=== PATIENT | female | born 1985 | race Hispanic/Latino ===

== ENCOUNTER 2018-08-01 15:29 | Emergency (ER) | payer SELFPAY ==
[2018-08-01 15:52] LABS: APPEARANCE,URINE Clear (CLEAR); BILIRUBIN,URINE Negative (NEGATIVE); COLOR,URINE Yellow (YELLOW); GLUCOSE, URINE (UA) Negative (NEGATIVE); KETONES,URINE Negative (NEGATIVE); LEUKOCYTE ESTERASE ,URINE Trace (NEGATIVE); NITRATE,URINE Negative (NEGATIVE); OCCULT BLOOD,URINE Trace (NEGATIVE); PH,URINE 8.5 (5.0-8.0); PROTEIN,URINE Negative (NEGATIVE)
[2018-08-01 15:59] LABS: BACTERIA,URINE Few /HPF (None Seen); RBC,URINE 0-1 /HPF (0-1); SQUAMOUS EPITHELIAL CELL,UR Few /HPF (0-2)
[2018-08-01 16:09] LABS: BASOPHILS % (AUTO) 0.6 % (0.0-5.0); EOSINOPHILS % (AUTO) 0.6 % (0.0-8.0); HEMATOCRIT 43.9 % (36-48); LYMPHOCYTES % (AUTO) 4.3 % (21.0-51.0); MEAN CORPUSCULAR HEMOGLOBIN 30.1 pg (27.0-33.0); MEAN CORPUSCULAR HGB CONC 34.1 g/dL (32.0-36.0); MEAN CORPUSCULAR VOLUME 88.3 fL (79-99); MONOCYTES % (AUTO) 4.2 % (3.0-13.0); NEUTROPHILS % (AUTO) 90.3 % (40.0-77.0); PLATELET COUNT (AUTO) 235 K/uL (130-400); RED BLOOD CELL COUNT(AUTO) 4.97 MIL/uL (4.00-5.50); RED CELL DISTRIBUTION WIDTH 13.6 % (11.0-15.5); WHITE BLOOD COUNT (AUTO) 11.9 K/uL (4.8-10.8)
[2018-08-01] MEDS ORDERED: SIMETHICONE 80 MG TAB.CHEW ONE (16:10)
[2018-08-01] MEDS ORDERED: ONDANSETRON ODT 4 MG TAB ONE (16:10)
[2018-08-01] MEDS ORDERED: DICYCLOMINE HCL 10 MG/ML 2ML AMP IM ONE (16:10)
[2018-08-01 16:18] LABS: CREATININE 0.9 mg/dL (0.5-1.5)
[2018-08-01 16:29] LABS: ALBUMIN 3.2 g/dL (3.5-5.0); BILIRUBIN,TOTAL 0.4 mg/dL (0.2-1.0)
== END 2018-08-01 16:41 | disposition home or self-care (01) ==
LOC: EDH 15:29
DX: R10.84 Generalized abdominal pain (principal); R19.7 Diarrhea, unspecified; R11.0 Nausea; J45.909 Unspecified asthma, uncomplicated; Z88.0 Allergy status to penicillin; Z72.0 Tobacco use
CPT/HCPCS: 36415; 80053; 81001; 83690; 84702; 85025; 96372; 99284; J0500

== ENCOUNTER 2019-04-04 08:22 | Emergency (ER) | payer SELFPAY ==
[2019-04-04] MEDS ORDERED: LISINOPRIL 5 MG TABLET ONE ×2 (08:44→08:49)
[2019-04-04 09:03] LABS: CREATININE 0.9 mg/dL (0.5-1.5); POTASSIUM 3.8 mmol/L (3.5-5.1)
== END 2019-04-04 09:28 | disposition home or self-care (01) ==
LOC: EDH 08:22
DX: I10 Essential (primary) hypertension (principal); J45.909 Unspecified asthma, uncomplicated; Z88.0 Allergy status to penicillin; Z87.891 Personal history of nicotine dependence
CPT/HCPCS: 36415; 80048

== ENCOUNTER 2019-05-11 09:14 | Emergency (ER) | payer OTHER ==
[2019-05-11] MEDS ORDERED: IPRATROPIUM/ALBUTEROL SULFATE 3 ML SOLUTION IH ONE (10:03)
[2019-05-11 10:15] LABS: RAPID GROUP A STREP NEGATIVE (NEGATIVE)
== END 2019-05-11 11:45 | disposition home or self-care (01) ==
LOC: EDH 09:14
DX: J45.901 Unspecified asthma with (acute) exacerbation (principal); Z33.1 Pregnant state, incidental; I10 Essential (primary) hypertension; Z88.0 Allergy status to penicillin; Z87.891 Personal history of nicotine dependence
CPT/HCPCS: 71046; 81025; 87804; 87880; 94640

== ENCOUNTER 2021-08-04 07:40 | Emergency (ER) | payer MEDICAID ==
[~2021-08-04] VITALS: Ht 157.5 cm; Wt 130.6 kg
[2021-08-04 07:46] VITALS: BP 151/97
[2021-08-04] MEDS ORDERED: ACETAMINOPHEN 500 MG TABLET PO ONE (08:00)
[2021-08-04] MEDS ORDERED: NAPR375T6 PO (08:29)
== END 2021-08-04 08:42 | disposition home or self-care (01) ==
LOC: EDH 07:40
DX: S39.011A Strain of muscle, fascia and tendon of abdomen, initial encounter (principal); J45.909 Unspecified asthma, uncomplicated; I10 Essential (primary) hypertension; Z88.0 Allergy status to penicillin; X58.XXXA Exposure to other specified factors, initial encounter; Y93.89 Activity, other specified; Y92.89 Other specified places as the place of occurrence of the external cause; Y99.8 Other external cause status
CPT/HCPCS: 99282

== ENCOUNTER 2023-09-02 09:53 | Emergency (ER) | payer MEDICAID, OTHER ==
[~2023-09-02] VITALS: Ht 157.5 cm; Wt 129.7 kg
[~2023-09-02 09:53] MED LIST: NAPR375T6 PO
[2023-09-02 10:36] LABS: BASOPHILS # (AUTO) 0.04 K/uL (0.00-0.20); BASOPHILS % (AUTO) 0.6 % (0.0-5.0); EOSINOPHILS # (AUTO) 0.26 K/uL (0.00-0.70); EOSINOPHILS % (AUTO) 3.8 % (0.0-8.0); IMMATURE GRANULOCYTE ABSOLUTE 0.05 K/uL (0-1); LYMPHOCYTES # (AUTO) 1.6 K/uL (1.0-4.8); MEAN CORPUSCULAR HEMOGLOBIN 28.2 pg (27.0-33.0); MEAN CORPUSCULAR HGB CONC 32.8 g/dL (32.0-36.0); MONOCYTES # (AUTO) 0.5 K/uL (0.1-1.0); MONOCYTES % (AUTO) 7.4 % (3.0-13.0); NEUTROPHILS # (AUTO) 4.4 K/uL (1.8-7.7); NEUTROPHILS % (AUTO) 64.5 % (40.0-77.0); PLATELET COUNT (AUTO) 256 K/uL (130-400); RED BLOOD CELL COUNT(AUTO) 4.65 MIL/uL (4.00-5.50); WHITE BLOOD COUNT (AUTO) 6.9 K/uL (4.8-10.8)
[2023-09-02] MEDS: CLINDAMYCIN 150 MG CAP PO ONE (10:43)
[2023-09-02] MEDS: IBUPROFEN 800 MG TAB PO ONE (10:43)
[2023-09-02 10:44] LABS: CREATININE 0.9 mg/dL (0.5-1.0); POTASSIUM 4.6 mmol/L (3.5-5.1)
[2023-09-02 10:50] LABS: ALBUMIN 3.2 g/dL (3.5-5.0); BILIRUBIN,TOTAL 0.3 mg/dL (0.2-1.0); TOTAL PROTEIN, SERUM 7.5 g/dL (6.0-8.3)
[2023-09-02] MEDS ORDERED: IBUP-2077 PO (11:10)
[2023-09-02] MEDS ORDERED: CLIN-141 PO (11:10)
[2023-09-02 11:19] VITALS: BP 131/76; PULSE 72; RESP 18; O2SAT 100
== END 2023-09-02 11:24 | disposition home or self-care (01) ==
LOC: EDH 09:53
DX: L03.031 Cellulitis of right toe (principal); J45.909 Unspecified asthma, uncomplicated; Z98.890 Other specified postprocedural states; Z88.0 Allergy status to penicillin
CPT/HCPCS: 36415; 80053; 85025

== ENCOUNTER 2024-02-12 15:47 | Emergency (ER) | payer BC ==
[~2024-02-12] VITALS: Ht 157.5 cm; Wt 134.3 kg
[~2024-02-12 15:47] MED LIST changes: +CLIN-141 PO; +IBUP-2077 PO; +NAPR-1505 PO; -NAPR375T6 PO
--- NOTE | 2024-02-12 15:54 | ERN ---
ED Note History of Present Illness Stated Complaint: TOE PAIN Chief Complaint: Toe Pain/Injury Time Seen by MD: 15:49 Dictation: PATIENT IS A 39-YEAR-OLD FEMALE HERE WITH LEFT GREAT TOE PAIN AFTER SHE DROPPED A CAN OF VEGETABLES ON HER LEFT FOOT WHILE COOKING. SHE STATES THE CAMP LANDED DIRECTLY ON THE BIG TOE. SKIN IS INTACT SHE TOOK 400 MG OF IBUPROFEN [id number] BUT STATES THAT IS NOT HELPING. Allergies: Coded Allergies: Penicillins (Unverified Allergy, Unknown, 08/01/18) Home Meds Active Scripts Ibuprofen (Ibuprofen 800 mg Tab) 800 Mg Tab, 800 MG PO Q8H PRN for fever or pain, #30 TAB 0 Refills Prov:MATA VAZQUEZ [employer] 09/02/23 Clindamycin HCl (Clindamycin HCl) 300 Mg Capsule, 300 MG PO QID for 10 Days, #40 CAP Prov:MATA VAZQUEZ [employer] 09/02/23 Naproxen (Naproxen) 375 Mg Tablet.dr, 375 MG PO BID for 7 Days, #14 TAB Prov:ELIO BARAJAS MD 08/04/21 Past Medical History Past Medical History: Asthma, Other Surgical History: PSYCH History: no pertinent psych hx History: Not Applicable RN Note Reviewed/Agreed w/PFSH: Yes Review of System Dictation CONSTITUTIONAL: NEGATIVE EXCEPT FOR HPI HEAD/FACE: NEGATIVE EXCEPT FOR HPI EENT: NEGATIVE EXCEPT FOR HPI RESPIRATORY: NEGATIVE EXCEPT FOR HPI GASTROINTESTINAL/ABDOMINAL: NEGATIVE EXCEPT FOR HPI GENITOURINARY: NEGATIVE EXCEPT FOR HPI MUSCULOSKELETAL: NEGATIVE EXCEPT FOR HPI LEFT GREAT TOE PAIN INTEGUMENTARY: NEGATIVE EXCEPT FOR HPI NEUROLOGICAL/PSYCH: NEGATIVE EXCEPT FOR HPI HEMATOLOGIC/LYMPHATIC: NEGATIVE EXCEPT FOR HPI ALL SYSTEMS NEGATIVE, EXCEPT NOTED ABOVE. 13 POINT REVIEW OF SYSTEMS ASSESSED AND ALL NEGATIVE EXCEPT FOR ABOVE. Initial Vital Sign VS Vital Signs Date Time Temp Pulse Resp B/P (MAP) Pulse Ox O2 Delivery O2 Flow Rate FiO2 02/12/24 15:49 98.2 87 18 177/85 95 02/12/24 16:00 Room Air* 0 21 Physical Exam Dictation VITAL SIGNS REVIEWED GENERAL APPEARANCE: ALERT, ORIENTED X 3, MODERATE ACUTE DISTRESS, WELL DEVELOPED, NOURISHED. OBESE HEAD AND FACE: NON-TRAUMATIC. EYES: PERRL, PINK CONJUNCTIVAS, EYELID NO TRAUMA, ANTERIOR CHAMBER WITH ARCUS SENILIS. EARS: PINNAS INTACT AND NO SIGNS OF TRAUMA OR ERYTHEMA EAR CANALS CLEAR AND NO DISCHARGE TM NO ERYTHEMA NOSE: NO DISCHARGE, NO BLEEDING. OROPHARYNX: MOUTH NORMAL, TONGUE PINK, PHARYNX CLEAR,NO ERYTHEMA, TONSILS NO EXUDATES, NO ABSCESSES NOTED, MUCOUS MEMBRANE MOIST NECK: SUPPLE, NON-TENDER, NO THYROMEGALY, NO MASSES, NO JVD, NO BRUITS BREAST:DEFERRED CHEST:NO TENDERNESS, NO CREPITUS, NO PARADOXICAL MOVEMENT, NO RETRACTIONS LUNGS:CLEAR, WELL-VENTILATED, SYMMETRIC, NO RALES, NO WHEEZING, NO RHONCHI, NO STRIDOR, GOOD BREATH SOUNDS BILATERALLY HEART: REGULAR RATE, REGULAR RHYTHM, NO MURMUR, NO GALLOPS VASCULAR: NO PERIPHERAL EDEMA, ABDOMEN: SOFT, POSITIVE BOWEL SOUNDS, NONDISTENDED, NO GUARDING, NONTENDER, NO REBOUND, NO MASSES NO HEPATOMEGALY, NO SPLENOMEGALY, NO MAYER'S SIGN, NO HERNIAS. RECTAL: DEFERRED GENITAL: DEFERRED NEUROLOGICAL: NORMAL SPEECH, MOTOR FUNCTION INTACT, SENSORY FUNCTION INTACT MUSCULOSKELETAL: NECK NONTENDER, FULL RANGE OF MOTION, BACK NONTENDER, FULL RANGE OF MOTION, EXTREMITIES: PAIN TENDERNESS TO LEFT GREAT TOE, NAIL IS INTACT. SKIN INTACT. SKIN: COLOR PINK, DRY, NO TURGOR, NO RASH, NO LACERATIONS, NO ABRASIONS, NO CONTUSIONS. LYMPHATIC: DEFERRED Results (Laboratory/Radiology) Laboratory/Radiology LEFT FOOT DEMONSTRATES A INCOMPLETE FRACTURE OF THE PROXIMAL 1ST TOE. Labs Reviewed?: Yes ED Course ED Course Orders Procedure Category Date Status Time Foot Comp 3+Vws Lt RAD 02/12/24 Taken 15:51 Acetaminophen With PHA 02/12/24 Complete Codeine (Tylenol-Code 16:00 Current Medications Medications (Trade) Dose Ordered Sig/Moses Route PRN Reason Start Time Stop Time Status Last Admin Dose Admin Acetaminophen/ Codeine Phosphate (TYLenol-coDEINE TAB) 2 tab ONCE ONCE PO 02/12/24 16:00 02/12/24 16:01 DC 02/12/24 15:55 Vital Signs Date Time Temp Pulse Resp B/P (MAP) Pulse Ox O2 Delivery O2 Flow Rate FiO2 02/12/24 16:00 98.2 87 16 177/85 99 Room Air* 0 21 02/12/24 15:49 98.2 87 18 177/85 95 SIXTEEN 12, LEFT 2ND AND 1ST TOE WERE ELAINE-TAPED AND PATIENT DISCHARGED HOME ON CRUTCHES. TOLD TO FOLLOW UP WITH ORTHOPEDICS IN ONE TWO DAYS WE WILL BE PROVIDED PAIN MANAGEMENT IN NAME OF PHYSICIAN Medical Decision Making MDM MEDICAL DISCHARGE MAKING BASED ON X-RAY OF LEFT TOE PATIENT HAS A PHALANX FRACTURE INCOMPLETE A NONDISPLACED DISCHARGED HOME WITH SPLINT/CRUTCHES AND NAME OF ORTHOPEDIC SURGEON IBUPROFEN 800 PRESCRIBED FOR PAIN DX & DISP Disposition: Discharge Departure Impression: Primary Impression: Fracture of great toe, left, closed Additional Impression: Blunt trauma Condition: Stable Scripts Ibuprofen (Ibuprofen 800 mg Tab) 800 Mg Tab 800 MG PO Q8H PRN for fever or pain, #30 TAB 0 Refills Prov: MATA VAZQUEZ NP 02/12/24 Additional Instructions: FOLLOW-UP WITH PRIMARY CARE PROVIDER IN 1 TO 2 DAYS. TAKE MEDICATIONS DIRECTED HERE IN THE EMERGENCY ROOM. OKAY TO CONTINUE HOME MEDICATIONS UNLESS OTHERWISE DISCUSSED DURING YOUR VISIT IN THE EMERGENCY ROOM TODAY. RETURN TO YOUR NEAREST EMERGENCY ROOM IF SYMPTOMS WORSEN OR IF THERE IS NO IMPROVEMENT. CALL 911 IF YOU NEED IMMEDIATE ASSISTANCE. TAKE TYLENOL OR MOTRIN [id number] NEEDED AND IF NO CONTRAINDICATIONS ARE PRESENT. INCREASE ORAL HYDRATION. A WOUND CULTURE OR URINE CULTURE WAS ORDERED HERE IN THE EMERGENCY ROOM DEPARTMENT PLEASE FOLLOW-UP WITH PRIMARY CARE PROVIDER AND ADVISE THEM TO GET REPEAT PORTS FROM OUR FACILITY. IF YOU HAD ANY NAZARIO WRAP/SPLINTS THAT WERE APPLIED HERE, PLEASE DO NOT REMOVE THEM UNTIL YOU SEE YOUR PRIMARY CARE OR SPECIALTY. SPLINT/CRUTCHES/NO WEIGHT-BEARING UNTIL CLEARED BY ORTHOPEDIC SURGEON, CALL FOR AN APPOINTMENT ON WEDNESDAY. APPLY COOL COMPRESSES TO PAIN THREE TO 4 TIMES A DAY. Referrals: SELF,REFERRAL (PCP) JANUARY BOSS MD Time of Disposition: 16:14 I have reviewed the case, and I agree with, Diagnosis and Plan MATA VAZQUEZ NP Feb 12, 2024 15:54
[2024-02-12] MEDS: acetaMINOPHEN WITH coDEINE 1 TAB TAB PO ONE (15:55)
[2024-02-12 16:20] VITALS: BP 167/78; PULSE 88; RESP 18; TEMP 98.5; O2SAT 97
--- NOTE | 2024-02-12 16:23 | NUR ---
PT STABLE AAOX4, PT GIVEN INSTRUCTIONS FOR HOME, PT MEDICATED FOR PAIN PRIOR TO LEAVING, PT WILL TREAT AT HOME W/ OTC PAIN MEDICATIONS, NO NEW RX GIVEN AT THIS TIME PT VERBALIZED UNDERSTANDING. PT DRIVEN HOME BY UNCLE. PT WILL SEE PCP ON WEDNESDAY. PT INSTRUCTED ON HOW TO USE CRUTCHES GIVEN HERE IN ED DEPT.
--- NOTE | 2024-02-12 18:30 | HMCIMG ---
FOOT COMP 3+VWS LT CLINICAL HISTORY: LEFT GREAT TOE PAIN AFTER DROPPING LARGE CAN OF VEGETABLES COMPARISON: None TECHNIQUE: AP lateral and oblique images were obtained. FINDINGS: No obvious fracture or dislocation. No joint effusion. The soft tissues appear unremarkable. No radiopaque foreign bodies. IMPRESSION: No acute findings.
== END 2024-02-12 16:25 | disposition home or self-care (01) ==
LOC: EDH 15:47
DX: S92.402A Displaced unspecified fracture of left great toe, initial encounter for closed fracture (principal); J45.909 Unspecified asthma, uncomplicated; Z88.0 Allergy status to penicillin; W04.XXXA Fall while being carried or supported by other persons, initial encounter; Y93.89 Activity, other specified; Y92.89 Other specified places as the place of occurrence of the external cause; Y99.8 Other external cause status
CPT/HCPCS: 73630; 99283